=== PATIENT | female | born 1960 | race Caucasian/White ===

== ENCOUNTER 2017-01-25 10:36 | Day surgery (SDC) | payer SELFPAY ==
[~2017-01-25 10:36] MED LIST: BSS OPTH.SOL* BTL ONE; Bacitracin OINTMENT* 1 TUBE ONE; Buffered Lidocaine 0.9% SYRIN* 5 ML/SYR SYRINGE INTRADERM ONE; Buffered Lidocaine 0.9% SYRIN* 5 ML/SYR SYRINGE ONE; Dexamethasone IV* 4 MG/ML 1 ML (4 MG) ONE; Famotidine IV* 10 MG/ML 2 ML (20 mg) IV ONE; Famotidine IV* 10 MG/ML 2 ML (20 mg) ONE; KETAMINE HCL* 50 MG/ML 10 ML VIAL ONE; Lidocain 1% EPI 1:100,000 * 30 ML MDV ONE; Lidocaine 1.5% EPI 1:200,000* 30 ML SDV ONE; Midazolam* 1 MG/ML 5 ML VIAL (5 MG) ONE; Morphine INJ* 2 MG/ML 1 ML SYRINGE IV PRN; Ondansetron INJ* 2 MG/ML VIAL ONE; PROCHLORPERAZINE INJ 5 MG/ML 2 ML VIAL IV PRN; Scopolamine 1.5 mg* PATCH ONE; Scopolamine 1.5 mg* PATCH TRANSDERM ONE; ceFAZolin 2 GM PREMIX(*) 2 GM/50 ML BAG IVPB ONE; fentaNYL* 50 MCG/ML 2 ML VIAL (100 MCG VIAL) IV PRN; fentaNYL* 50 MCG/ML 2 ML VIAL (100 MCG VIAL) ONE; oxyCODONE/Acetamin 5/325 MG* TAB PO PRN
[2017-01-25] MEDS ORDERED: Midazolam* 1 MG/ML 2 ML VIAL (2 MG) ONE (12:04)
[2017-01-25] MEDS ORDERED: fentaNYL* 50 MCG/ML 2 ML VIAL (100 MCG VIAL) ONE (12:25)
[2017-01-25] MEDS ORDERED: Flumazenil* 0.1 MG/ML 5 ML MDV ONE (13:57)
[2017-01-25] MEDS ORDERED: Lidocaine 2% PF * 5 ML VIAL ONE (14:03)
[2017-01-25] MEDS ORDERED: Propofol* 10 MG/ML 20 ML BTL IV PUSH ONE (14:03)
[2017-01-25 15:34] VITALS: BP 118/70
[2017-01-28] MEDS ORDERED: Scopolomine PATCH Remove* 1 NOTE MISC PATCH OFF ONE (06:00)
== END 2017-01-25 15:00 | disposition home or self-care (01) ==
LOC: OREAST 10:36
PROVIDERS: ATTEND Plastic Surgery
DX: Z41.1 Encounter for cosmetic surgery (principal); Z85.3 Personal history of malignant neoplasm of breast
CPT/HCPCS: A9270-GY; J0690; J1100; J2250; J2405; J2704; J3010

== ENCOUNTER 2017-05-22 19:18 | Emergency (ER) | payer BC ==
[2017-05-22 19:32] VITALS: BP 114/70
--- NOTE | 2017-05-22 19:33 | UC ---
Bite Injury/Animal HPI - HPI Summary HPI Summary: 56 year old female presents with complains of mutiple tick bites. - History of Current Complaint Chief Complaint: UCSkin Stated Complaint: TICK BITES Time Seen by Provider: 05/22/17 19:33 Hx Obtained From: Patient Pain Scale Used: 0-10 Numeric - 0 Onset/Duration: Sudden Onset Type of Bite: Animal - tick Character: Puncture - Allergies/Home Medications Allergies/Adverse Reactions: Allergies Allergy/AdvReac Type Severity Reaction Status Date / Time PINE NEEDLES Allergy Rash Uncoded 05/22/17 19:32 Home Medications: Home Medications Selenium-Yeast [Selenium] 1 tab PO 05/22/17 [History Confirmed 05/22/17] PMH/Surg Hx/FS Hx/Imm Hx Previously Healthy: Yes - Surgical History Surgical History: Yes Surgery Procedure, Year, and Place: PARTIAL RIGHT MASTECTOMY 2003, right mastectomy November 2013. powerport placement left chest wall December 2013. wisdom teeth. abdominalplasty - Social History Alcohol Use: None Alcohol Amount: 5 DRINKS A YEAR Substance Use Type: None Smoking Status (MU): Never Smoked Tobacco - Immunization History Most Recent Influenza Vaccination: never Most Recent Tetanus Shot: unknown Most Recent Pneumonia Vaccination: never Review of Systems Constitutional: Negative Skin: Rash Eyes: Negative ENT: Negative Respiratory: Negative Cardiovascular: Negative Gastrointestinal: Negative Genitourinary: Negative Motor: Negative Neurovascular: Negative Musculoskeletal: Negative Neurological: Negative Psychological: Negative All Other Systems Reviewed And Are Negative: Yes Physical Exam Triage Information Reviewed: Yes Vital Signs: Initial Vital Signs Temp 36.6 C 05/22/17 19:27 Pulse 83 05/22/17 19:27 Resp 16 05/22/17 19:27 BP 114/70 05/22/17 19:27 Pulse Ox 100 05/22/17 19:27 Vital Signs Reviewed: Yes Eye Exam: Normal ENT Exam: Normal Dental Exam: Normal Neck exam: Normal Neck: Positive: 1 Respiratory Exam: Normal Cardiovascular Exam: Normal Abdominal Exam: Normal Musculoskeletal Exam: Normal Neurological Exam: Normal Psychological Exam: Normal Skin: Positive: rashes Bite Injury Course/Dx - Course Course Of Treatment: doxycycline 200 mg given at office visit - Differential Dx/Diagnosis Provider Diagnoses: rash. tick bite Discharge - Discharge Plan Condition: Stable Disposition: HOME Patient Education Materials: Lyme Disease (ED), Insect Bite or Sting (ED), Tick Bite (ED) Referrals: Bobby Fowler MD [Primary Care Provider] -
[2017-05-22] MEDS ORDERED: DOXYcycline CAP(*) 100 MG PO ONE (19:37)
[2017-05-23 11:49] LABS: Hematocrit 41 % (35-47); Hemoglobin 13.6 g/dl (12.0-16.0); Mean Corpuscular HGB Conc 33 g/dl (31-36); Mean Corpuscular Hemoglobin 30 pg (27-31); Mean Corpuscular Volume 90 fL (80-97); Mean Platelet Volume 8 um3 (7.4-10.4); Red Blood Count 4.52 10^6/ul (4.0-5.4); Red Cell Distribution Width 13 % (10.5-15); White Blood Count 7.5 10^3/ul (3.5-10.8)
[2017-05-23 14:21] LABS: Total Bilirubin 0.3 mg/dL (0.2-1.0)
[2017-05-23 14:39] LABS: Albumin 4.2 g/dL (3.2-5.2)
[2017-05-23 14:58] LABS: BUN/Creatinine Ratio 18.5 (8-20); Calcium 9.2 mg/dL (8.6-10.3); EGFR African American 81.8 (>60); EGFR Non-African American 63.6 (>60); Globulin 2.5 g/dL (2-4); Potassium 4.7 mmol/L (3.5-5.0); Total Protein 6.7 g/dL (6.4-8.9)
--- NOTE | 2017-05-24 18:34 | UC ---
Progress - Progress Note Progress Note: call patient . lyme (-).
== END 2017-05-22 19:57 | disposition home or self-care (01) ==
LOC: UCEAST 19:18
DX: R21 Rash and other nonspecific skin eruption (principal); S40.861A Insect bite (nonvenomous) of right upper arm, initial encounter; S20.361A Insect bite (nonvenomous) of right front wall of thorax, initial encounter; W57.XXXA Bitten or stung by nonvenomous insect and other nonvenomous arthropods, initial encounter; Y93.9 Activity, unspecified; Y92.9 Unspecified place or not applicable
CPT/HCPCS: 36415; 80053; 85025; 86618; 99212; A9270-GY; G0463

== ENCOUNTER 2017-11-09 11:53 | Emergency (ER) | payer BC ==
--- NOTE | 2017-11-09 15:27 | RAD ---
Indication: Sudden onset RIGHT knee pain and swelling. Almost nonweightbearing. Comparison: None. Technique: RIGHT knee: AP, tunnel, lateral, sunrise views. Report: Mild osteophytosis and mild medial joint space narrowing. Small suprapatellar joint effusion. Negative for fracture or malalignment. Unremarkable soft tissue contours. IMPRESSION: Kellgren and Kaz grade 2 osteoarthritis. Small joint effusion.
[2017-11-09 15:30] VITALS: BP 156/67
--- NOTE | 2017-11-09 15:32 | UC ---
Knee Pain HPI - HPI Summary HPI Summary: About 2 weeks ago patient had sore throat with fever. She noted resolve on its own. 3 days ago she developed severe right knee pain and swelling. Yesterday she was almost nonweight bearing the pain was so bad. Today the pain is resolving - History of Current Complaint Hx Obtained From: Patient Hx Last Menstrual Period: na ?: No Onset/Duration: Sudden Onset, Still Present Severity Initially: Moderate Severity Currently: Moderate Location Of Injury: No injury but has right knee pain Pain Intensity: 5 Pain Scale Used: 0-10 Numeric Character: Aching, Throbbing Aggravating Factor(s): Movement, Weight Bearing Alleviating Factor(s): Rest Associated Signs And Symptoms: Positive: Swelling Able to Bear Weight: Yes <Renu Mcleod - Last Filed: 11/09/17 18:12> <Fadumo Villanueva - Last Filed: 11/11/17 09:38> - History of Current Complaint Chief Complaint: UCGeneralIllness Stated Complaint: KNEE PAIN Time Seen by Provider: 11/09/17 13:59 - Allergies/Home Medications Allergies/Adverse Reactions: Allergies Allergy/AdvReac Type Severity Reaction Status Date / Time PINE NEEDLES Allergy Rash Uncoded 11/09/17 13:28 PMH/Surg Hx/FS Hx/Imm Hx Previously Healthy: Yes - Surgical History Surgical History: Yes Surgery Procedure, Year, and Place: PARTIAL RIGHT MASTECTOMY 2003, right mastectomy November 2013. powerport placement left chest wall December 2013. wisdom teeth. abdominalplasty - Family History Known Family History: Positive: None - Social History Occupation: Works From/At Home Lives: With Family Alcohol Use: None Alcohol Amount: 5 DRINKS A YEAR Substance Use Type: None Smoking Status (MU): Never Smoked Tobacco - Immunization History Most Recent Influenza Vaccination: never Most Recent Tetanus Shot: unknown Most Recent Pneumonia Vaccination: never <Renu Mcleod - Last Filed: 11/09/17 18:12> Review of Systems Constitutional: Negative Skin: Negative Eyes: Negative ENT: Negative Respiratory: Negative Cardiovascular: Negative Gastrointestinal: Negative Genitourinary: Negative Motor: Decreased ROM - Right knee Neurovascular: Negative Musculoskeletal: Negative, Arthralgia - Right knee Neurological: Negative Psychological: Negative Is Patient Immunocompromised?: No All Other Systems Reviewed And Are Negative: Yes <Renu Mcleod - Last Filed: 11/09/17 18:12> Physical Exam Triage Information Reviewed: Yes Appearance: Well-Appearing, No Pain Distress, Well-Nourished Vital Signs: Initial Vital Signs Temp 97.5 F 11/09/17 13:21 Pulse 63 11/09/17 13:21 Resp 18 11/09/17 13:21 BP 125/67 11/09/17 13:21 Pulse Ox 98 11/09/17 13:21 Vital Signs Reviewed: Yes Eye Exam: Normal Eyes: Positive: Conjunctiva Clear ENT Exam: Normal ENT: Positive: Normal ENT inspection, Hearing grossly normal, Pharynx normal. Negative: Trismus, Muffled voice, Hoarse voice Dental Exam: Normal Neck exam: Normal Neck: Positive: Supple, Nontender, No Lymphadenopathy Respiratory Exam: Normal Respiratory: Positive: Chest non-tender, Lungs clear, Normal breath sounds, No respiratory distress, No accessory muscle use Cardiovascular Exam: Normal Cardiovascular: Positive: RRR, No Murmur, Pulses Normal - E, Brisk Capillary Refill Musculoskeletal Exam: Normal Musculoskeletal: Positive: Strength Intact, ROM Limited @ - right knee, Edema @ - right knee normal O Neurological Exam: Normal Neurological: Positive: Alert, Muscle Tone Normal Psychological Exam: Normal Skin Exam: Normal <Renu Mcleod - Last Filed: 11/09/17 18:12> Vital Signs: Initial Vital Signs Temp 97.5 F 11/09/17 13:21 Pulse 63 11/09/17 13:21 Resp 18 11/09/17 13:21 BP 125/67 11/09/17 13:21 Pulse Ox 98 11/09/17 13:21 <Fadumo Villanueva - Last Filed: 11/11/17 09:38> Diagnostics - Laboratory Diagnostic Studies Completed/Ordered: Strep (-) - Radiology No standard instances Xray Interpretation: Positive (See Comments) - small joint effusion, osteoarthritis <Renu Mcleod - Last Filed: 11/09/17 18:12> Knee Pain Course/Dx - Course Course Of Treatment: lab studies, follow with Dr. Brennan early next week - Differential Dx/Diagnosis Provider Diagnoses: right knee joint effusion <Renu Mcleod - Last Filed: 11/09/17 18:12> Discharge - Sign-Out/Discharge Documenting (check all that apply): Discharge - Billing Disposition and Condition Condition: STABLE Disposition: HOME <Renu Mcleod - Last Filed: 11/09/17 18:12> - Sign-Out/Discharge Documenting (check all that apply): Post-Discharge Follow Up - please call patient for follow up to assess her status and whether medication has been helping. She was prescribed amoxil for Strep coverage. ASO was negative. If persistent with symptoms may benefit from throat culture and f/u with PCP - Billing Disposition and Condition Condition: STABLE Disposition: HOME <Fadumo Villanueva - Last Filed: 11/11/17 09:38> - Discharge Plan Condition: Stable Disposition: HOME Prescriptions: Amoxicillin PO (*) [Amoxicillin 875 MG (*)] 875 mg PO BID #20 tab Patient Education Materials: Swollen Knee Joint (ED) Referrals: Bobby Fowler MD [Primary Care Provider] - 4 Days Additional Instructions: The exact cause of the swelling to knee is unknown. It could be related to the sore throat and fever you had 2 weeks ago. It could be from Lyme disease from that tick bite you had 6 months ago. Could be just from joint wear and tear. We have drawn labs that will be back in the next couple days. Your x-ray does show a small joint effusion and a small amount of osteoarthritis. Please follow up with Dr. Von Brennan early next week
[2017-11-09 18:17] LABS: ABS Basophils 0.1 10^3/ul (0-0.2); ABS Eosinophils 0.1 10^3/ul (0-0.6); ABS Lymphocytes 2.4 10^3/ul (1.0-4.8); ABS Monocytes 0.4 10^3/ul (0-0.8); ABS Neutrophils 5.3 10^3/ul (1.5-7.7); ABS Nucleated RBC 0 10^3/ul; Eosinophil % 1.5 % (0-6); Hematocrit 39 % (35-47); Hemoglobin 13.1 g/dl (12.0-16.0); Mean Corpuscular HGB Conc 34 g/dl (31-36); Mean Corpuscular Hemoglobin 30 pg (27-31); Mean Corpuscular Volume 88 fL (80-97); Mean Platelet Volume 7.3 um3 (7.4-10.4); Nucleated Red Blood Cells % 0; Platelet Count 268 10^3/ul (150-450); Red Blood Count 4.37 10^6/ul (4.0-5.4); Red Cell Distribution Width 13 % (10.5-15); White Blood Count 8.2 10^3/ul (3.5-10.8)
== END 2017-11-09 15:39 | disposition home or self-care (01) ==
LOC: UCEAST 11:53
DX: M25.461 Effusion, right knee (principal); M25.561 Pain in right knee
CPT/HCPCS: 36415; 81003; 85025; 86060; 86140; 86618; 87651; 99212; G0463

== ENCOUNTER 2018-03-09 09:33 | Emergency (ER) | payer BC ==
[2018-03-09 10:02] VITALS: BP 122/70
--- NOTE | 2018-03-09 10:34 | UC ---
Dental HPI - HPI Summary HPI Summary: HAS HAD ABSCESS TOOTH #13 (LEFT UPPER 2ND PREMOLAR) SINCE AUGUST. TX TWICE WITH ABX. PAIN AND SWELLING RECURRED ABOUT A MONTH AGO. PT FEELS LIKE IT HAS DRAINED SPONTANEOUSLY. HAS PAIN WITH CHEWING. TOOTH HAS HAD PREVIOUS ROOT CANAL AND CROWN. SAW HER DENTIST FOR THE ABSCESS IN THE PAST AND WAS SUPPOSED TO HAVE SOME WORK DONE BUT HIS OFFICE NEVER RESPONDED WITH AN APPT DATE AND PT HAS LOST CONFIDENCE IN HIM. WOULD LIKE TO SEE A NEW DENTIST. NO FEVER. - History of Current Complaint Chief Complaint: UCDentalProblem Stated Complaint: ABCESS IN MOUTH Time Seen by Provider: 03/09/18 09:51 Hx Obtained From: Patient Hx Last Menstrual Period: na Onset/Duration: Gradual Onset, Lasting Weeks, Still Present Severity: Moderate Pain Intensity: 3 Pain Scale Used: 0-10 Numeric Aggravating Factor(s): Chewing Alleviating Factor(s): OTC Meds - IBUPROFEN Related History: Previous Dental Care on Same Tooth - ROOT CANAL, CROWN - Allergies/Home Medications Allergies/Adverse Reactions: Allergies Allergy/AdvReac Type Severity Reaction Status Date / Time PINE NEEDLES Allergy Rash Uncoded 03/09/18 09:47 Home Medications: Home Medications Glucosam/Chond-MSM 2/C/D3/Geo [Xvenveknty-Ruhiiihizgo-TYH Tab] 1 each PO DAILY 03/09/18 [History Confirmed 03/09/18] Magnesium 30 mg PO DAILY 03/09/18 [History Confirmed 03/09/18] PMH/Surg Hx/FS Hx/Imm Hx Cancer History: Breast Cancer - Surgical History Surgical History: Yes Surgery Procedure, Year, and Place: PARTIAL RIGHT MASTECTOMY 2003, right mastectomy November 2013. powerport placement left chest wall December 2013. wisdom teeth. abdominalplasty - Family History Known Family History: Positive: None - Social History Alcohol Use: Rare Alcohol Amount: 5 DRINKS A YEAR Substance Use Type: None Smoking Status (MU): Never Smoked Tobacco - Immunization History Most Recent Influenza Vaccination: never Most Recent Tetanus Shot: unknown Most Recent Pneumonia Vaccination: never Review of Systems Constitutional: Negative ENT: Dental Pain Respiratory: Negative Cardiovascular: Negative Gastrointestinal: Negative All Other Systems Reviewed And Are Negative: Yes Physical Exam Triage Information Reviewed: Yes Appearance: Well-Appearing, No Pain Distress, Well-Nourished Vital Signs: Initial Vital Signs Temp 97.4 F 03/09/18 09:50 Pulse 84 03/09/18 09:50 Resp 18 03/09/18 09:50 BP 122/70 03/09/18 09:50 Pulse Ox 95 03/09/18 09:50 Vital Signs Reviewed: Yes Eyes: Positive: Conjunctiva Clear ENT: Positive: Hearing grossly normal, Pharynx normal Dental: Positive: Percussion Tenderness @ - #13, Abscess @ - #13 Neck: Positive: Supple, Nontender, No Lymphadenopathy Respiratory: Positive: No respiratory distress, No accessory muscle use Cardiovascular: Positive: Pulses Normal Musculoskeletal: Positive: No Edema Neurological: Positive: Alert Psychological: Positive: Age Appropriate Behavior Skin: Negative: rashes Dental Complaint Course/Dx - Differential Dx/Diagnosis Provider Diagnoses: DENTAL ABSCESS TOOTH #13 Discharge - Sign-Out/Discharge Documenting (check all that apply): Patient Departure - Discharge Plan Condition: Stable Disposition: HOME Prescriptions: Amoxicillin/Clavulanate TAB* [Augmentin TAB 875*] 875 mg PO BID #20 tab Chlorhexidine MW 0.12% 473ML* [Peridex Mouth Wash 0.12%*] 15 ml SWISH SPIT BID # 1 bottle Patient Education Materials: Dental Abscess (ED) Referrals: Bobby Fowler MD [Primary Care Provider] - If Needed Additional Instructions: TAKE THE ANTIBIOTICS FOR THE FULL COURSE. RINSE MOUTH OUT WITH WATER AFTER EATING/DRINKING AND USE PERIDEX RINSE TWICE DAILY. IBUPROFEN NEEDED FOR DISCOMFORT. [facility] D[facility] Dentist Office [address], [place], [place] [id number] Opens at [address]am Dr. Dilan Pedraza DDS [address], [place], [place] [id number] Landen Gallo D.D.S. [address], [place], [place] [id number] Opens at 8am - Billing Disposition and Condition Condition: STABLE Disposition: Home
== END 2018-03-09 10:43 | disposition home or self-care (01) ==
LOC: UCEAST 09:33
DX: K04.7 Periapical abscess without sinus (principal); Z85.3 Personal history of malignant neoplasm of breast
CPT/HCPCS: 99212; G0463

== ENCOUNTER 2019-05-26 11:31 | Emergency (ER) | payer SELFPAY ==
[2019-05-26 12:49] LABS: ABS Basophils 0.1 10^3/ul (0-0.2); ABS Eosinophils 0.1 10^3/ul (0-0.6); ABS Lymphocytes 2.2 10^3/ul (1.0-4.8); ABS Monocytes 0.4 10^3/ul (0-0.8); Eosinophil % 1.3 %; Hematocrit 40 % (35-47); Hemoglobin 13.3 g/dL (12.0-16.0); Mean Corpuscular HGB Conc 34 g/dL (31-36); Mean Corpuscular Hemoglobin 30 pg (27-31); Mean Corpuscular Volume 89 fL (80-97); Mean Platelet Volume 7.5 fL (7.4-10.4); Nucleated Red Blood Cells % 0.1; Platelet Count 202 10^3/uL (150-450); Red Blood Count 4.47 10^6 /uL (3.70-4.87); Red Cell Distribution Width 13 % (10-15); White Blood Count 5.8 10^3/uL (3.5-10.8)
--- NOTE | 2019-05-26 12:58 | ED ---
Complex/Multi-Sys Presentation - HPI Summary HPI Summary: This pt is a 58 y/o [place] [facility] potential exposure to [place] 2 days ago. Pt states she knows coworkers who were exposed to carbon monoxide in the place where she works. Pt reports she went to work at the [employer] at 0800 2 days ago (05/24/19) and stayed there until 1100. She notes that at around 1000 she began to feel weak and dizzy upon getting up. Pt went home at 1100 and upon arriving home she felt generalized weakness, disoriented and drowsy. Pt thought she might be having a heart attack but realized she didn't have diaphoresis or chest pain. Her sister, who also works in the same place, called her and told the patient she might also be having a heart attack. Pt states she had a headache for the rest of the day on 05/24/19. Additionally pt felt really thirsty and felt like she couldn't quench it, she had urinary frequency, and a mild upset stomach. Pt also took her pulse and it was 80 bpm, she states normally her pulse is 60 bpm resting. Later on 05/24/19 she did some lifting physical work and felt very tired, wanting to lie down and sleep. The next day on 05/25 she reports her headache had resolved but still had frequent urination until around the evening. Today pt reports feeling much better. Denies chest pain, pressure, tightness, or heaviness. Pt takes supplements but notes she stopped taking them when she had these symptoms. Her supplements include magnesium and vitamin D. Her PCP was Dr. Adam Fowler but he is now working at the hospital and pt is looking for a new PCP. - History Of Current Complaint Chief Complaint: EDChemNuclearExpose Time Seen by Provider: 05/26/19 11:42 Hx Obtained From: Patient Onset/Duration: Lasting Days, Still Present Timing: Days Location: Negative Aggravating Factor(s): nothing Alleviating Factor(s): nothing Associated Signs And Symptoms: Positive: Weakness - generalized, Headache, Nausea, Other - POSITIVE: disoriented, dizziness, frequent urination.. Negative : SOB, Cough, Chest Pain, Vomiting, Abdominal Pain, Dysuria, Fever - Allergies/Home Medications Allergies/Adverse Reactions: Allergies Allergy/AdvReac Type Severity Reaction Status Date / Time PINE NEEDLES Allergy Rash Uncoded 05/26/19 11:41 PMH/Surg Hx/FS Hx/Imm Hx Endocrine/Hematology History: Denies: Hx Diabetes, Hx Systemic Lupus Erythematosus, Hx Thyroid Disease Cardiovascular History: Denies: Hx Congestive Heart Failure, Hx Hypertension Respiratory History: Denies: Hx Asthma, Hx Chronic Obstructive Pulmonary Disease (COPD) GI History: Denies: Hx Ulcer History: Denies: Hx Dialysis, Hx Renal Disease Musculoskeletal History: Denies: Hx Rheumatoid Arthritis Sensory History: Reports: Hx Contacts or Glasses - CONTACTS-INFORMED TO NOT WEAR DAY OF SURGERY Denies: Hx Hearing Aid Opthamlomology History: Reports: Hx Contacts or Glasses - CONTACTS-INFORMED TO NOT WEAR DAY OF SURGERY - Cancer History Cancer Type, Location and Year: HX RIGHT BREAST CA (INVASIVE DUCTAL), HX ANGIOSARCOMA Hx Chemotherapy: Yes Hx Radiation Therapy: Yes - RIGHT - Surgical History Surgical History: Yes Surgery Procedure, Year, and Place: PARTIAL RIGHT MASTECTOMY 2003, right mastectomy November 2013. powerport placement left chest wall December 2013. wisdom teeth. abdominalplasty Hx Anesthesia Reactions: No Infectious Disease History: No Infectious Disease History: Denies: Hx Hepatitis, Hx Human Immunodeficiency Virus (HIV), Traveled Outside the [place] in Last 30 Days - Family History Known Family History: Negative: Cardiac Disease, Hypertension, Diabetes - Social History Alcohol Use: Rare Alcohol Amount: 5 DRINKS A YEAR Substance Use Type: Reports: None Smoking Status (MU): Never Smoked Tobacco Review of Systems Negative: Fever, Chills Negative: Erythema Negative: Sore Throat Negative: Chest Pain Negative: Shortness Of Breath, Cough Positive: Nausea. Negative: Abdominal Pain, Vomiting Positive: frequency. Negative: dysuria, hematuria Negative: Myalgia, Edema Negative: Rash Neurological: Other - POSITIVE: disoriented, drowsy, dizziness Positive: Headache, Weakness - generalized All Other Systems Reviewed And Are Negative: Yes Physical Exam - Summary Physical Exam Summary: Constitutional: Well-developed, Well-nourished, Alert. (-) Distressed Skin: Warm, Dry HENT: Normocephalic; Atraumatic Eyes: Conjunctiva normal Neck: Musculoskeletal ROM normal neck. (-) JVD, (-) Stridor, (-) Tracheal deviation Cardio: Rhythm regular, rate normal, Heart sounds normal; Intact distal pulses; The pedal pulses are 2+ and symmetric. Radial pulses are 2+ and symmetric. (-) Murmur Pulmonary/Chest wall: Effort normal. (-) Respiratory distress, (-) Wheezes, (-) Rales Abd: Soft, (-) Tenderness, (-) Distension, (-) Guarding, (-) Rebound Musculoskeletal: (-) Edema Lymph: (-) Cervical adenopathy Neuro: Alert, Oriented x3 Psych: Mood and affect Normal Triage Information Reviewed: Yes Vital Signs On Initial Exam: Initial Vitals Temp Pulse Resp BP Pulse Ox 97.7 F 73 16 127/86 97 05/26/19 11:37 05/26/19 11:37 05/26/19 11:37 05/26/19 11:37 05/26/19 11:37 Vital Signs Reviewed: Yes Procedures - Sedation Patient Received Moderate/Deep Sedation with Procedure: No Diagnostics - Vital Signs Vital Signs Temp Pulse Resp BP Pulse Ox 05/26/19 11:37 97.7 F 73 16 127/86 97 - Laboratory Lab Results: Lab Results 05/26/19 05/26/19 Range/Units 12:11 12:14 WBC 5.8 (3.5-10.8) 10^3/uL RBC 4.47 (3.70-4.87) 10^6 /uL Hgb 13.3 (12.0-16.0) g/dL Hct 40 (35-47) % MCV 89 (80-97) fL MCH 30 (27-31) pg MCHC 34 (31-36) g/dL RDW 13 (10-15) % Plt Count 202 (150-450) 10^3/uL MPV 7.5 (7.4-10.4) fL Neut % (Auto) 51.7 % Lymph % (Auto) 39.0 % [place] % (Auto) 7.1 % Eos % (Auto) 1.3 % Baso % (Auto) 0.9 % Absolute Neuts (auto) 3.0 (1.5-7.7) 10^3/ul Absolute Lymphs (auto) 2.2 (1.0-4.8) 10^3/ul Absolute Monos (auto) 0.4 (0-0.8) 10^3/ul Absolute Eos (auto) 0.1 (0-0.6) 10^3/ul Absolute Basos (auto) 0.1 (0-0.2) 10^3/ul Absolute Nucleated RBC 0.0 10^3/ul Nucleated RBC % 0.1 Carbon Monoxide Screen <4.0 (<4.0) % Result Diagrams: 05/26/19 12:11 05/26/19 12:11 Lab Statement: Any lab studies that have been ordered have been reviewed, and results considered in the medical decision making process. - EKG 12:48 Cardiac Rate: NL - at 62 bpm EKG Rhythm: Sinus Rhythm Summary of EKG Findings: EKG at 12:48 shows sinus rhyhtm at 62 bpm. No STEMI. Complex Multi-Symp Course/Dx Course Of Treatment: The patient reports urinary frequency, also symptoms of headache and dizziness on Sunday when she was working in a place known to have had monoxide exposure to other employees. There have been many monoxide half-lives in the past 48 hours, levels are currently 0. NO Acute additional management of her monoxide exposure is indicated. The patient elected to go home prior to lab results, we will call her with her outstanding TSH result. - Diagnoses Provider Diagnoses: Carbon monoxide exposure, Urinary frequency Discharge ED - Sign-Out/Discharge Documenting (check all that apply): Patient Departure - Discharge home - Discharge Plan Condition: Stable Disposition: HOME Patient Education Materials: Carbon Monoxide Poisoning (ED), Urinary Urgency and Frequency (DC) Referrals: [facility] [Outside] Additional Instructions: Follow up with your primary care provider in 2-3 days. RETURN TO THE EMERGENCY DEPARTMENT FOR CHANGING OR WORSENING SYMPTOMS. - Attestation Statements Document Initiated by Scribe: Yes Documenting Scribe: Fadumo Rivera Provider For Whom Scribe is Documenting (Include Credential): Mark Manning MD Scribe Attestation: Fadumo Grayson, scribed for Mark Manning MD on 05/26/19 at 1500. Status of Scribe Document: Ready
[2019-05-26 13:08] LABS: Albumin 4.1 g/dL (3.2-5.2); Albumin/Globulin Ratio 1.7 (1-3); BUN/Creatinine Ratio 22.1 (8-20); Calcium 9.5 mg/dL (8.6-10.3); EGFR African American 93.8 (>60); EGFR Non-African American 77.5 (>60); Globulin 2.4 g/dL (2-4); Total Bilirubin 0.3 mg/dL (0.2-1.0); Total Protein 6.5 g/dL (6.4-8.9)
[2019-05-26 13:11] LABS: Potassium 5.2 mmol/L (3.5-5.0)
[2019-05-26 14:03] LABS: Urine Appearance Cloudy; Urine Bilirubin Negative (Negative); Urine Blood Negative (Negative); Urine Color Yellow; Urine Glucose Negative (Negative); Urine Ketones Negative (Negative); Urine Nitrite Negative (Negative); Urine Protein Negative (Negative); Urine Urobilinogen Negative (Negative)
[2019-05-26 14:41] VITALS: BP 125/79
[2019-05-26 15:03] LABS: TSH (Thyroid Stimulating Horm) 2.8 mcIU/mL (0.34-5.60)
== END 2019-05-26 14:35 | disposition home or self-care (01) ==
LOC: ED 11:31
DX: Z57.39 Occupational exposure to other air contaminants (principal); R35.0 Frequency of micturition; Z85.3 Personal history of malignant neoplasm of breast; Z90.11 Acquired absence of right breast and nipple; Z95.828 Presence of other vascular implants and grafts
CPT/HCPCS: 36415; 80053; 81003; 82375; 83605; 83735; 84443; 84484; 85025; 93005; 99282

== ENCOUNTER 2019-10-16 10:22 | Day surgery (SDC) | payer BC ==
[~2019-10-16 10:22] MED LIST changes: -BSS OPTH.SOL* BTL ONE; -Bacitracin OINTMENT* 1 TUBE ONE; -Buffered Lidocaine 0.9% SYRIN* 5 ML/SYR SYRINGE INTRADERM ONE; -Buffered Lidocaine 0.9% SYRIN* 5 ML/SYR SYRINGE ONE; +Buffered Lidocaine 1% SYRIN* 1 ML/SYRINGE INTRADERM ONE; -Dexamethasone IV* 4 MG/ML 1 ML (4 MG) ONE; +DiMENhydriNATE IV* 50 MG/ML VIAL IV PUSH ONE; -Famotidine IV* 10 MG/ML 2 ML (20 mg) ONE; -KETAMINE HCL* 50 MG/ML 10 ML VIAL ONE; +Lactated Ringers 1000 ML Bag* 1,000 ML IV SCH; +Levalbuterol 0.63MG/3ML NEB* UNIT OF USE INH PRN; -Lidocain 1% EPI 1:100,000 * 30 ML MDV ONE; -Lidocaine 1.5% EPI 1:200,000* 30 ML SDV ONE; -Midazolam* 1 MG/ML 5 ML VIAL (5 MG) ONE; -Morphine INJ* 2 MG/ML 1 ML SYRINGE IV PRN; +Naloxone* 0.4 MG/ML 1 ML VIAL IV PRN; -Ondansetron INJ* 2 MG/ML VIAL ONE; +Ondansetron ODT TAB* 4 MG PO ONE; -Scopolamine 1.5 mg* PATCH ONE; -Scopolamine 1.5 mg* PATCH TRANSDERM ONE; -ceFAZolin 2 GM PREMIX(*) 2 GM/50 ML BAG IVPB ONE; -fentaNYL* 50 MCG/ML 2 ML VIAL (100 MCG VIAL) IV PRN; -fentaNYL* 50 MCG/ML 2 ML VIAL (100 MCG VIAL) ONE; -oxyCODONE/Acetamin 5/325 MG* TAB PO PRN
[2019-10-16] MEDS ORDERED: DiMENhydriNATE IV* 50 MG/ML VIAL ONE (10:35)
[2019-10-16] MEDS ORDERED: Levalbuterol 0.63MG/3ML NEB* UNIT OF USE INH ONE ×2 (10:36→12:00)
[2019-10-16] MEDS ORDERED: Famotidine IV* 10 MG/ML 2 ML (20 mg) ONE (10:36)
[2019-10-16] MEDS ORDERED: Ondansetron INJ* 2 MG/ML VIAL ONE (10:36)
[2019-10-16] MEDS ORDERED: Ondansetron ODT TAB* 4 MG ONE (11:15)
[2019-10-16] MEDS ORDERED: fentaNYL* 50 MCG/ML 2 ML VIAL (100 MCG VIAL) ONE (11:36)
[2019-10-16] MEDS ORDERED: KETAMINE HCL* 50 MG/ML 10 ML VIAL ONE (11:36)
[2019-10-16] MEDS ORDERED: Rocuronium* 10 MG/ML VIAL ONE (11:36)
[2019-10-16] MEDS ORDERED: Midazolam* 1 MG/ML 5 ML VIAL (5 MG) ONE (11:37)
[2019-10-16] MEDS ORDERED: Benzocaine/Butamben/Tetracain (CETACAINE - SINGLE USE) 5 gm TOPICAL ONE (12:48)
[2019-10-16] MEDS ORDERED: Propofol* 10 MG/ML 20 ML BTL ONE (14:09)
[2019-10-16] MEDS ORDERED: PROCHLORPERAZINE INJ 5 MG/ML 2 ML VIAL ONE (14:09)
[2019-10-16] MEDS ORDERED: Sugammadex * 500 MG/5 ML VIAL IV PUSH ONE (14:09)
[2019-10-16] MEDS ORDERED: Lidocaine 2% PF * 5 ML VIAL ONE (14:09)
--- NOTE | 2019-10-16 15:21 | PRO ---
BRONCHOSCOPY REPORT: DATE OF PROCEDURE: 10/16/19 PROCEDURE PERFORMED: Bronchoscopy with endobronchial ultrasound-guided fine needle aspiration of mediastinal nodes. PREPROCEDURAL DIAGNOSIS: Lymphadenopathy. POSTPROCEDURAL DIAGNOSIS: Granulomatous disease in the lymph nodes. ANESTHESIA: General anesthesia. ANESTHESIOLOGIST: Dr. Singh. DESCRIPTION OF PROCEDURE: Informed consent was obtained from the patient prior to the procedure after all the risks and benefits were thoroughly explained. The patient was intubated with size 8.5 endotracheal tube. Flexible Olympus bronchoscope was inserted through ET tube for airway inspection. No endobronchial lesions were noted. Narrowing of the airways noted possibly from the lymphadenopathy. Minimal secretions noted and were suctioned out. Bronchoscope was then withdrawn and EBUS bronchoscope was inserted. Station 7 was found to be significantly enlarged. Other mediastinal and hilar nodes were also significantly enlarged. Station 7 was sampled with 4 passes. Rapid on- site evaluation revealed lymphatic tissue with granulomas. Specimen was also placed in CytoLyt. Bronchoscope was then withdrawn and the Olympus bronchoscope reinserted. Minimal amount of bleeding was noted and suctioned out. Bronchoscope was then withdrawn. The patient was extubated and seen in Recovery in optimal condition. [id number]/CPS #: [id number] MTDD
[2019-10-16 16:03] VITALS: BP 122/80
--- NOTE | 2019-10-16 16:41 | BRIEFOPN ---
Brief Operative/Procedure Note - Operation Details Pre-Op Diagnosis: Lymphadenopathy Post-Op Diagnosis: Lymphadenopathy- Granulomas+ Procedures: Bronchoscopy/EBUS Surgeon(s)/Proceduralists: Joan Gupta Anesthesia: [place]- Dr Ashland Estimated Blood Loss: Minimal Findings: Enlarged nodes Specimen(s)/Culture(s) Description: FNA from station 7 Complications: None
== END 2019-10-16 16:00 | disposition home or self-care (01) ==
LOC: OR 10:22
PROVIDERS: ATTEND Internal Medicine
DX: I88.8 Other nonspecific lymphadenitis (principal); Z85.3 Personal history of malignant neoplasm of breast; R53.83 Other fatigue; R00.2 Palpitations; E78.2 Mixed hyperlipidemia; D25.9 Leiomyoma of uterus, unspecified
CPT/HCPCS: 88172; 88173; 88177; 88184; 88187; 88188; 88189; 88305; A9270-GY; J0780; J1240; J2250; J2405; J2704; J3010